=== PATIENT | male | born 1990 | race Caucasian/White ===

== ENCOUNTER 2017-06-03 12:17 | Inpatient (IN) | payer OTHER ==
[2017-06-03] VITALS (7 sets, daily range): BP systolic 108–143; BP diastolic 63–86; PULSE 87–100; RESP 18–20; TEMP 95.6–97.6; O2SAT 100
[~2017-06-03] VITALS: Ht 172.7 cm; Wt 59.5 kg
[~2017-06-03 12:17] MED LIST: LACTATED RINGER'S 1000 ML INJ 1,000 ML IV ONE; ONDANSETRON HCL 4 MG/2 ML VIAL IV PUSH ONE; PHENYLEPH/NS 1000 MCG/10 ML SYR IV ONE; PROPOFOL 200 MG/20 ML AMP IV ONE
[2017-06-03] MEDS ORDERED: ceFAZolin 2 GM PREMIX 50 ML ONE (12:21)
[2017-06-03] MEDS ORDERED: MORPHINE SULFATE 8 MG/ML INJ ONE ×2 (12:24→15:44)
[2017-06-03] MEDS ORDERED: ONDANSETRON HCL 4 MG/2 ML VIAL ONE (12:24)
[2017-06-03 12:45] LABS: AUTOMATED NEUTROPHIL # 2.4 TH/MM3 (1.8-7.7); BASOPHIL # 0.1 TH/MM3 (0-0.2); EOSINOPHIL # 0.2 TH/MM3 (0-0.4); EOSINOPHIL % 2.7 % (0.0-4.0); HEMO FLAGS DIFF FINAL; I-STAT POTASSIUM 3.9 MMOL/L (3.5-4.9); LYMPH % 49.7 % (9.0-44.0); LYMPHOCYTE # 2.9 TH/MM3 (1.0-4.8); MEAN CELL VOLUME 84.2 FL (80.0-100.0); MEAN CORPUSCULAR HEMOGLOBIN 29.6 PG (27.0-34.0); MEAN CORPUSCULAR HGB CONC 35.2 % (32.0-36.0); MONO % 5.1 % (0.0-8.0); NEUT % 41.5 % (16.0-70.0); PLATELET COUNT 279 TH/MM3 (150-450); RED BLOOD COUNT 5.11 MIL/MM3 (4.50-5.90); RED CELL DISTRIBUTION WIDTH 12.6 % (11.6-17.2); WHITE BLOOD COUNT 5.8 TH/MM3 (4.0-11.0)
[2017-06-03] MEDS ORDERED: ACETAMINOPHEN 325 MG TAB PO PRN (12:45)
[2017-06-03] MEDS ORDERED: ENALAPRILAT 1.25 MG/ML VIAL IV PRN (12:45)
[2017-06-03] MEDS ORDERED: MORPHINE SULFATE 30 MG/30 ML PCA IV SCH (12:45)
[2017-06-03] MEDS ORDERED: ONDANSETRON HCL 4 MG/2 ML VIAL IV PRN (12:45)
[2017-06-03] MEDS ORDERED: SODIUM CHLORIDE 0.9% FLUSH 10 ML FLUSH IV FLUSH PRN ×2 (12:45→16:30)
[2017-06-03] MEDS ORDERED: NALOXONE HCL 0.4 MG/ML AMP IV PRN (12:45)
[2017-06-03] MEDS ORDERED: MISCELLANEOUS NURSING INFORMATION XX SCH (12:45)
[2017-06-03] MEDS ORDERED: CHLORHEXIDINE GLUCONATE 2 % 1 PACK (2 CLOTHS) TOP PRN (12:45)
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
[2017-06-03] MEDS ORDERED: IOHEXOL 350 MG/ML 10 ML VIAL (for RAD DIAG) IV ONE (12:51)
[2017-06-03 12:53] LABS: APTT (PATIENT) 24.3 SEC (24.3-30.1); PROTHROMBIN TIME - PATIENT 11.1 SEC (9.8-11.6)
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
[2017-06-03] MEDS ORDERED: PANTOPRAZOLE SODIUM 40 MG VIAL IVP SCH (13:00)
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
[2017-06-03] MEDS ORDERED: ORPH100T99 PO (13:16)
[2017-06-03] MEDS: SODIUM CHLOR 0.9% 1000 ML INJ 1,000 ML IV SCH ×2 (13:28→19:20)
[2017-06-03] MEDS: BACITRACIN TOP OINT 15 GM TUBE TOP SCH ×2 (13:28→23:11)
[2017-06-03] MEDS ORDERED: HYDROmorphone HCL PF 1 MG/ML VIAL IVS ONE (14:30)
[2017-06-03] MEDS ORDERED: ONDANSETRON HCL 4 MG/2 ML VIAL IVP ONE (14:30)
[2017-06-03] MEDS ORDERED: GENTAMICIN SULFATE 80 MG/2 ML VIAL ONE (15:29)
[2017-06-03] MEDS ORDERED: VANCOMYCIN HCL 1000 MG VIAL ONE (16:14)
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
[2017-06-03] MEDS ORDERED: PERC5TAB12 PO (16:29)
[2017-06-03] MEDS ORDERED: BISACODYL 10 MG SUPP RECTAL PRN (16:30)
[2017-06-03] MEDS ORDERED: oxyCODONE/ACETAMINOPHEN 5 MG/325 MG TAB PO PRN (16:30)
[2017-06-03] MEDS ORDERED: PROMETHAZINE HCL 25 MG TAB PO PRN (16:30)
[2017-06-03] MEDS ORDERED: MORPHINE SULFATE 8 MG/ML INJ IV PUSH PRN (16:30)
[2017-06-03] MEDS ORDERED: LACTULOSE SYRUP 20 GM/30 ML CUP PO PRN (16:30)
[2017-06-03] MEDS ORDERED: Post-op Orders (for Pharmacy) MISC XX ONE (16:30)
[2017-06-03] MEDS ORDERED: SENNOSIDES 8.6 MG TAB PO PRN (16:30)
[2017-06-03] MEDS ORDERED: ZOLPIDEM TARTRATE 5 MG TAB PO PRN (16:30)
[2017-06-03] MEDS ORDERED: MAGNESIUM HYDROXIDE SUSP 30 ML CUP PO PRN (16:30)
--- NOTE | 2017-06-03 16:47 | EKG ---
Date Performed: 06/03/2017 Time Performed: 16:14:31 PTAGE: 89 years EKG: Sinus rhythm NORMAL ECG INTERPRETATION BASED ON A DEFAULT AGE OF 41 YEARS NO PREVIOUS TRACING DOCTOR: Fran Valencia Interpretating Date/Time 06/03/2017 16:45:24
[2017-06-03] MEDS ORDERED: MORPHINE SULFATE 4 MG/ML INJ IV PUSH PRN (17:00)
--- NOTE | 2017-06-03 18:15 | PD.OP ---
cc: Dann Casiano Jr., MD Operative Report Date of Surgery: Jun 03, 2017 Preoperative Diagnosis: Left grade 2 open tibia fracture Postoperative Diagnosis: Same Procedure: #1 irrigation debridement #2 intramedullary leidy fixation left tibia Surgeon: Dann Casiano Fire Range Technician(s): Staff Resident Surgeon: None Operation and Findings: The patient received intravenous Ancef and Vanc. After the appropriate anesthesia was administered, the patient was prepped and draped in the supine position in the usual sterile fashion. Skin assessment showed fairly clean open fracture wound. The distal medial tibia shaft wound was extended sharply with knife. The wound was fairly clean. Nonetheless it was thoroughly irrigated and debrided to the extent of periosteal stripping and soft tissue degloving. We made incision proximal to the patella. We carefully dissected down to the quadriceps tendon. An in-line longitudinal split to the quadriceps tendon was completed. The capsule of the knee was entered. We placed the smooth trocar within the knee joint down to the proximal tibia, protecting the patella and trochlea during the case. We then reduced the tibia fracture manually under fluoroscopic imaging. A ball- tipped guidewire was placed into the tibial shaft, passing the fracture site. This was placed down to the distal physeal line of the tibia. We then sequentially reamed the tibia to 1 mm larger than the implanted tibial nail. We obtained good cortical chatter. We measured the appropriate length for the tibial nail. We then passed the tibial nail into the medullary canal of the tibia. The nail was secured proximally with 2 screw(s), using the associated jig as a guide. We used the perfect [place] technique to visualize the distal tibial screws. The nail was secured distally with 3 screw(s). We had good reduction of the fracture with acceptable alignment in the AP and lateral planes and to rotation. We thoroughly irrigated the incisions including a lavage of the arthrotomy site proximally. The quadriceps split was closed with a #1 Vicryl. The remaining incisions were closed with #2-0 Vicryl, followed by jessica. Sterile dressing was applied. IMPLANTS USED Synthes tibal nail, size: 9 POSTP-OP PLAN OF ACTIVITY Antibiotics: Ancef, vancomycin -48hrs Antiocoagulation: Lovenox Weight bearing status: 50% Dressing: Change daily, by RN starting postop day 2 Dispo: expected discharge 2 days after 48hrs iv abx Dann Casiano Jr., MD Jun 03, 2017 18:15
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
[2017-06-03] MEDS ORDERED: fentaNYL CITRATE 250 MCG/5 ML AMP ONE (19:01)
[2017-06-03] MEDS ORDERED: DO NOT ADM ANY ANTICOAGULANT DRUGS PRN (19:30)
[2017-06-03] MEDS: KETOROLAC TROMETHAMINE 30 MG/ML (IVP) VIAL IVP SCH (19:50)
[2017-06-03] MEDS: diphenhydrAMINE HCL 25 MG CAP PO PRN (20:50)
[2017-06-03] MEDS: SODIUM CHLORIDE 0.9% FLUSH 10 ML FLUSH IV FLUSH SCH (21:00)
[2017-06-03] MEDS: DOCUSATE SODIUM 50 MG/SENNA 8.6 MG TAB PO SCH (21:00)
[2017-06-03] MEDS: oxyCODONE/ACETAMINOPHEN 5 MG/325 MG TAB PO PRN (21:12)
[2017-06-03] MEDS: PCA - TOTAL MG MORPHINE DELIVERED PER SHIFT SCH (22:00)
[2017-06-04] VITALS (7 sets, daily range): BP systolic 101–110; BP diastolic 53–66; PULSE 94–110; RESP 16–18; TEMP 96.9–98.3; O2SAT 95–99
[2017-06-04] MEDS: oxyCODONE/ACETAMINOPHEN 5 MG/325 MG TAB PO PRN ×4 (01:23→21:53)
[2017-06-04] MEDS: KETOROLAC TROMETHAMINE 30 MG/ML (IVP) VIAL IVP SCH ×4 (01:24→20:23)
[2017-06-04] MEDS: SODIUM CHLOR 0.9% 1000 ML INJ 1,000 ML IV SCH (03:01)
[2017-06-04] MEDS ORDERED: CHLORHEXIDINE GLUCONATE 2 % 1 PACK (2 CLOTHS) TOP SCH (04:00)
[2017-06-04] MEDS: diphenhydrAMINE HCL 25 MG CAP PO PRN ×2 (04:22→07:51)
[2017-06-04] MEDS: VANCOMYCIN INJ 1,000 MG in SODIUM CHLOR 0.9% 250 ML INJ 250 ML IV SCH ×2 (04:25→17:37)
[2017-06-04] MEDS: PCA - TOTAL MG MORPHINE DELIVERED PER SHIFT SCH ×3 (06:00→22:00)
[2017-06-04 06:29] LABS: BASOPHIL % 0.3 % (0.0-2.0); EOSINOPHIL % 0.6 % (0.0-4.0); HEMATOCRIT 29.7 % (39.0-51.0); HEMO FLAGS DIFF FINAL; LYMPH % 22.9 % (9.0-44.0); LYMPHOCYTE # 1.7 TH/MM3 (1.0-4.8); MEAN CELL VOLUME 85.9 FL (80.0-100.0); MEAN CORPUSCULAR HEMOGLOBIN 29.5 PG (27.0-34.0); MEAN CORPUSCULAR HGB CONC 34.4 % (32.0-36.0); MONO % 7.5 % (0.0-8.0); NEUT % 68.7 % (16.0-70.0); PLATELET COUNT 200 TH/MM3 (150-450); RED BLOOD COUNT 3.46 MIL/MM3 (4.50-5.90); RED CELL DISTRIBUTION WIDTH 12.7 % (11.6-17.2); WHITE BLOOD COUNT 7.3 TH/MM3 (4.0-11.0)
[2017-06-04 06:59] LABS: BICARBONATE 27.5 MEQ/L (21.0-32.0); POTASSIUM 3.6 MEQ/L (3.5-5.1)
[2017-06-04] MEDS: ENOXAPARIN SODIUM 30 MG/0.3 ML SYRINGE SQ SCH ×2 (07:06→18:27)
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
[2017-06-04] MEDS: DOCUSATE SODIUM 50 MG/SENNA 8.6 MG TAB PO SCH ×2 (07:50→20:23)
[2017-06-04] MEDS: BACITRACIN TOP OINT 15 GM TUBE TOP SCH ×2 (07:51→20:33)
[2017-06-04] MEDS: FAMOTIDINE 20 MG TAB PO SCH ×2 (07:51→20:23)
[2017-06-04] MEDS: SODIUM CHLORIDE 0.9% FLUSH 10 ML FLUSH IV FLUSH SCH ×2 (07:51→20:32)
--- NOTE | 2017-06-04 13:14 | HHI.PR ---
Subjective Subjective Notes S/P I&D and IM leidy fixation LEFT tibia Complains of itching with pain meds Objective Vitals/I&O Vital Signs Date Time Temp Pulse Resp B/P Pulse Ox O2 Delivery O2 Flow Rate FiO2 06/04/17 10:56 98 21 06/04/17 08:00 96.9 94 18 110/61 06/03/17 19:50 Nasal Cannula 2 Labs Laboratory Tests Test 06/04/17 06:04 White Blood Count 7.3 Red Blood Count 3.46 Hemoglobin 10.2 Hematocrit 29.7 Mean Corpuscular Volume 85.9 Mean Corpuscular Hemoglobin 29.5 Mean Corpuscular Hemoglobin 34.4 Concent Red Cell Distribution Width 12.7 Platelet Count 200 Mean Platelet Volume 7.1 Neutrophils (%) (Auto) 68.7 Lymphocytes (%) (Auto) 22.9 Monocytes (%) (Auto) 7.5 Eosinophils (%) (Auto) 0.6 Basophils (%) (Auto) 0.3 Neutrophils # (Auto) 5.0 Lymphocytes # (Auto) 1.7 Monocytes # (Auto) 0.5 Eosinophils # (Auto) 0.0 Basophils # (Auto) 0.0 CBC Comment DIFF FINAL Differential Comment Sodium Level 139 Potassium Level 3.6 Chloride Level 106 Carbon Dioxide Level 27.5 Anion Gap 6 Blood Urea Nitrogen 9 Creatinine 0.91 Estimat Glomerular Filtration 72 Rate Random Glucose 107 Calcium Level 8.1 Radiology Last Impressions Pelvis X-Ray 06/03/176 Signed Impressions: Service Date/Time: May 12:11 - CONCLUSION: No acute osseous injury. Lev Melton MD Head CT 06/03/171225 Signed Impressions: Service Date/Time: May 12:30 - CONCLUSION: Negative exam. No acute trauma. Lev Melton MD Chest X-Ray 06/03/171225 Signed Impressions: Service Date/Time: May 12:11 - CONCLUSION: 1. Old left clavicular fracture. 2. Nothing acute. Lev Melton MD Chest CT 06/03/176 Signed Impressions: Service Date/Time: May 12:36 - CONCLUSION: 1. Old left clavicular fracture with ORIF. 2. Otherwise negative. Lev Melton MD Cervical Spine CT 06/03/17 1226 Signed Impressions: Service Date/Time: , June 03, 2017 12:32 - CONCLUSION: Negative exam. No acute osseous injury. Lev Melton MD Abdomen/Pelvis CT 06/03/17 1226 Signed Impressions: Service Date/Time: , June 03, 2017 12:36 - CONCLUSION: Negative exam. No acute intraperitoneal or pelvic visceral trauma/fracture. Lev Melton MD Tibia/Fibula X-Ray 06/03/17 0000 Signed Impressions: Service Date/Time: , June 03, 2017 18:02 - CONCLUSION: Limited images as detailed above. Valentino Hurley Jr., MD Shoulder X-Ray 06/03/17 0000 Signed Impressions: Service Date/Time: , June 03, 2017 12:11 - CONCLUSION: 1. Sideplate and osseous screws on a previous left clavicular fracture. 2. No acute injury. Lev Melton MD Narrative Exam GENERAL: 27-year-old well-nourished, well developed male lying in bed. SKIN: Warm and dry. HEAD: Atraumatic. Normocephalic. NECK: Trachea midline. No JVD. CARDIOVASCULAR: Regular rate and rhythm. RESPIRATORY: No accessory muscle use. Lungs clear to auscultation. Breath sounds equal bilaterally. GASTROINTESTINAL: Abdomen soft, non-tender, nondistended. + BS. MUSCULOSKELETAL: Extremities without cyanosis, or edema. LLE with claudine wrap in place. + peripheral pulses, MAEW. NEUROLOGICAL: Awake and alert. Normal speech. A/P Assessment and Plan INJURIES: LEFT open tib/fib fx 06/03: I&D and IM leidy fixation LEFT tibia Diet: Regular Pulmonary: IS Pain: Morphine PEACH GROWER, Toradol IV, Percocet, Morphine IV PRN. Activity: OOB. PT ordered (50% WB LLE) GI: Pepcid Bowel: Nimco-colace, PRN Lactulose and MOM. No BM yet DVT: SCDs, Lovenox 30 BID LEFT open tib/fib fx Orthopedics consulted 06/03: I&D and IM leidy fixation LEFT tibia Pain control ABX: Ancef and Vanco 50% WB LLE OOB- PT ordered Plan of care discussed with patient and girlfriend at bedside. Case management consulted to assist with discharge planning. Plan to DC home tomorrow once antibiotics completed. Riya Santos Jun 04, 2017 13:14
[2017-06-04] MEDS ORDERED: WALKER WHEELS/F1 MIS (13:16)
[2017-06-04] MEDS ORDERED: CRUTMIS25 (13:16)
[2017-06-04] MEDS: diphenhydrAMINE HCL 50 MG/ML VIAL IV PUSH PRN (18:44)
[2017-06-04] MEDS: MULTIVITAMINS/MINERALS THERAPEUTIC TAB PO SCH (20:22)
[2017-06-04] MEDS: ORPHENADRINE CITRATE 100 MG SUSTAINED RELEASE TAB PO SCH (20:23)
[2017-06-05 00:10] VITALS: BP 113/64; PULSE 98; RESP 16; TEMP 98.1; O2SAT 95
[2017-06-05] MEDS: diphenhydrAMINE HCL 50 MG/ML VIAL IV PUSH PRN ×3 (00:45→10:52)
[2017-06-05] MEDS: KETOROLAC TROMETHAMINE 30 MG/ML (IVP) VIAL IVP SCH ×3 (00:45→14:30)
[2017-06-05] MEDS: PCA - TOTAL MG MORPHINE DELIVERED PER SHIFT SCH (04:08)
[2017-06-05] MEDS: ENOXAPARIN SODIUM 30 MG/0.3 ML SYRINGE SQ SCH ×2 (06:32→18:04)
[2017-06-05] MEDS: oxyCODONE/ACETAMINOPHEN 5 MG/325 MG TAB PO PRN ×4 (06:33→20:42)
[2017-06-05 08:00] VITALS: BP 119/67; PULSE 94; RESP 14; TEMP 98.5; O2SAT 94
[2017-06-05] MEDS: DOCUSATE SODIUM 50 MG/SENNA 8.6 MG TAB PO SCH ×2 (10:20→20:37)
[2017-06-05] MEDS: ORPHENADRINE CITRATE 100 MG SUSTAINED RELEASE TAB PO SCH ×2 (10:20→20:37)
[2017-06-05] MEDS: MULTIVITAMINS/MINERALS THERAPEUTIC TAB PO SCH ×2 (10:20→20:37)
[2017-06-05] MEDS: FAMOTIDINE 20 MG TAB PO SCH ×2 (10:20→20:37)
[2017-06-05] MEDS: SODIUM CHLORIDE 0.9% FLUSH 10 ML FLUSH IV FLUSH SCH ×2 (10:21→20:38)
--- NOTE | 2017-06-05 10:29 | PD.ORT.PN ---
Subjective Subjective Remarks POD 2- IMN left tibia grade 2 open doing well. pruritis with pain meds. not able to put much weight on leg. Objective Vitals Vital Signs Date Time Temp Pulse Resp B/P Pulse Ox O2 Delivery O2 Flow Rate FiO2 06/05/17 08:00 98.5 94 14 119/67 94 06/05/17 00:10 98.1 98 16 113/64 95 06/04/17 21:16 99 21 06/04/17 20:10 97.5 109 16 109/63 96 06/04/17 16:00 98.3 110 18 101/66 97 06/04/17 12:00 97.7 98 18 105/64 99 06/04/17 10:56 98 21 I/O 06/04/17 06/04/17 06/04/17 06/05/17 06/05/17 06/05/17 07:00 15:00 23:00 07:00 15:00 23:00 Intake Total 913 ml 960 ml 1778 ml 340 ml Balance 913 ml 960 ml 1778 ml 340 ml Intake Oral 240 ml 960 ml 480 ml 240 ml IV Total 673 ml 1298 ml 100 ml # Voids 1 3 2 2 # Bowel Movements 0 0 0 0 Result Diagram: 06/04/17 0604 06/04/17 0604 Objective Remarks LLE: nvi. wound with mild-mod ss drainage distal wound. dressing with dry drainage. soft compartment. neg homans Assessment & Plan Assessment and Plan POD 2- IMN left tibia grade 2 open doing well -benadryl lovenox dc abx today 50% wb dressing change qday stable per ortho. clear f/u 2 wks Dann Casiano Jr., MD Jun 05, 2017 10:29
--- NOTE | 2017-06-05 10:30 | PD.ORT.PN ---
Subjective Subjective Remarks POD 1- IMN left tibia grade 2 open no CP/SOB. pain controlled. Objective Vitals Vital Signs Date Time Temp Pulse Resp B/P Pulse Ox O2 Delivery O2 Flow Rate FiO2 06/05/17 08:00 98.5 94 14 119/67 94 06/05/17 00:10 98.1 98 16 113/64 95 06/04/17 21:16 99 21 06/04/17 20:10 97.5 109 16 109/63 96 06/04/17 16:00 98.3 110 18 101/66 97 06/04/17 12:00 97.7 98 18 105/64 99 06/04/17 10:56 98 21 I/O 06/04/17 06/04/17 06/04/17 06/05/17 06/05/17 06/05/17 07:00 15:00 23:00 07:00 15:00 23:00 Intake Total 913 ml 960 ml 1778 ml 340 ml Balance 913 ml 960 ml 1778 ml 340 ml Intake Oral 240 ml 960 ml 480 ml 240 ml IV Total 673 ml 1298 ml 100 ml # Voids 1 3 2 2 # Bowel Movements 0 0 0 0 Result Diagram: 06/04/17 0604 06/04/17 0604 Objective Remarks LLE: nvi. wound with mild-mod ss drainage distal wound. dressing with dry drainage. soft compartment. neg homans Assessment & Plan Assessment and Plan POD 1- IMN left tibia grade 2 open doing well lovenox dc abx tomorrow 50% wb dressing change qday POD 2 will follow DATE OF VISIT 06/04/17 Dann Casiano Jr., MD Jun 05, 2017 10:30
[2017-06-05] MEDS: BACITRACIN TOP OINT 15 GM TUBE TOP SCH ×2 (10:31→20:43)
[2017-06-05 12:00] VITALS: BP 121/76; PULSE 84; RESP 15; TEMP 97.5; O2SAT 96
[2017-06-05] MEDS ORDERED: WHEEMIS3 (12:07)
--- NOTE | 2017-06-05 12:09 | HHI.FF ---
Face to Face Verification Diagnosis: (1) Type III open fracture of distal end of left fibula and tibia Physical Therapy Order: Evaluate and Treat, Improve ambulation, Strength and gait training Home Health Nursing Order: Nursing assessment with vital signs I have seen patient Baldemar Moreira on 06/05/17. My clinical findings support the need for the requested home health care services because: Limited ability to care for self High risk of falls I certify that my clinical findings support that this patient is homebound because: Post-op weakness Unsteady gait/balance Riya Santos Jun 05, 2017 12:09
[2017-06-05] MEDS ORDERED: LACTULOSE SYRUP 20 GM/30 ML CUP PO ONE (12:15)
--- NOTE | 2017-06-05 13:56 | HHI.PR ---
Subjective Subjective Notes Complains of itching with pain meds Not cooperative with PT this AM Objective Vitals/I&O Vital Signs Date Time Temp Pulse Resp B/P Pulse Ox O2 Delivery O2 Flow Rate FiO2 06/05/17 12:00 97.5 84 15 121/76 96 06/04/17 21:16 21 06/03/17 19:50 Nasal Cannula 2 Labs Last Impressions Pelvis X-Ray 06/03/17 1226 Signed Impressions: Service Date/Time: May 12:11 - CONCLUSION: No acute osseous injury. Lev Melton MD Head CT 06/03/17 1226 Signed Impressions: Service Date/Time: May 12:30 - CONCLUSION: Negative exam. No acute trauma. Lev Melton MD Chest X-Ray 06/03/17 1226 Signed Impressions: Service Date/Time: May 12:11 - CONCLUSION: 1. Old left clavicular fracture. 2. Nothing acute. Lev Melton MD Chest CT 06/03/17 1226 Signed Impressions: Service Date/Time: May 12:36 - CONCLUSION: 1. Old left clavicular fracture with ORIF. 2. Otherwise negative. Lev Melton MD Cervical Spine CT 06/03/17 1226 Signed Impressions: Service Date/Time: May 12:32 - CONCLUSION: Negative exam. No acute osseous injury. Lev Melton MD Abdomen/Pelvis CT 06/03/17 1226 Signed Impressions: Service Date/Time: May 12:36 - CONCLUSION: Negative exam. No acute intraperitoneal or pelvic visceral trauma/fracture. Lev Melton MD Tibia/Fibula X-Ray 06/03/17 0000 Signed Impressions: Service Date/Time: May 18:02 - CONCLUSION: Limited images as detailed above. Valentino Hurley Jr., MD Shoulder X-Ray 06/03/17 0000 Signed Impressions: Service Date/Time: , June 03, 2017 12:11 - CONCLUSION: 1. Sideplate and osseous screws on a previous left clavicular fracture. 2. No acute injury. Lev Melton MD Radiology Last Impressions Pelvis X-Ray 06/03/17 1226 Signed Impressions: Service Date/Time: May 12:11 - CONCLUSION: No acute osseous injury. Lev Melton MD Head CT 06/03/17 1226 Signed Impressions: Service Date/Time: May 12:30 - CONCLUSION: Negative exam. No acute trauma. Lev Melton MD Chest X-Ray 06/03/17 1226 Signed Impressions: Service Date/Time: May 12:11 - CONCLUSION: 1. Old left clavicular fracture. 2. Nothing acute. Lev Melton MD Chest CT 06/03/17 1226 Signed Impressions: Service Date/Time: May 12:36 - CONCLUSION: 1. Old left clavicular fracture with ORIF. 2. Otherwise negative. Lev Melton MD Cervical Spine CT 06/03/17 1226 Signed Impressions: Service Date/Time: May 12:32 - CONCLUSION: Negative exam. No acute osseous injury. Lev Melton MD Abdomen/Pelvis CT 06/03/17 1226 Signed Impressions: Service Date/Time: May 12:36 - CONCLUSION: Negative exam. No acute intraperitoneal or pelvic visceral trauma/fracture. Lev Melton MD Tibia/Fibula X-Ray 06/03/17 0000 Signed Impressions: Service Date/Time: May 18:02 - CONCLUSION: Limited images as detailed above. Valentino Hurley Jr., MD Shoulder X-Ray 06/03/17 0000 Signed Impressions: Service Date/Time: May 12:11 - CONCLUSION: 1. Sideplate and osseous screws on a previous left clavicular fracture. 2. No acute injury. Lev Melton MD Narrative Exam GENERAL: 27-year-old well-nourished, well developed male lying in bed. SKIN: Warm and dry. HEAD: Atraumatic. Normocephalic. NECK: Trachea midline. No JVD. CARDIOVASCULAR: Regular rate and rhythm. RESPIRATORY: No accessory muscle use. Lungs clear to auscultation. Breath sounds equal bilaterally. GASTROINTESTINAL: Abdomen soft, non-tender, nondistended. + BS. MUSCULOSKELETAL: Extremities without cyanosis, +1 LLE edema. LLE with [place] dressings C/D/I. + peripheral pulses, MAEW. NEUROLOGICAL: Awake and alert. Normal speech. A/P Assessment and Plan INJURIES: LEFT open tib/fib fx 06/03: I&D and IM leidy fixation LEFT tibia Diet: Regular Pulmonary: IS Pain: Toradol IV, Percocet, Morphine IV PRN. Activity: OOB. PT ordered (50% WB LLE) GI: Pepcid Bowel: Nimco-colace, PRN Lactulose and MOM. No BM yet. Lactulose x1 today DVT: SCDs, Lovenox 30 BID LEFT open tib/fib fx Orthopedics consulted 06/03: I&D and IM leidy fixation LEFT tibia Pain control ABX: Ancef and Vanco 50% WB LLE OOB- PT ordered Plan of care discussed with patient and girlfriend at bedside. Case management consulted to assist with discharge planning. CM to assist with DME delivery today so patient can DC tomorrow AM. ABX complete tonight at 1999. Plan to DC home tomorrow AM. Wheelchair and walker ordered. Attending Statement The exam, history, and the medical decision-making described in the above note were completed with the assistance of the mid-level provider. I reviewed and agree with the findings presented. I attest that I had a [id number] encounter with the patient on the same day, and personally performed and documented my assessment and findings in the medical record. extremity Exam: soft, neurovascular intact pain controlled DC home when cleared by ortho and PT Riya Santos Jun 05, 2017 13:56 Osbaldo Carcamo MD Jun 05, 2017 19:15
[2017-06-05] MEDS: diphenhydrAMINE HCL 25 MG CAP PO PRN ×2 (15:33→22:09)
[2017-06-05 16:00] VITALS: BP 121/75; PULSE 88; RESP 17; TEMP 98; O2SAT 94
[2017-06-05 19:10] VITALS: BP 138/68; PULSE 79; RESP 18; TEMP 97.9; O2SAT 99
[2017-06-05 23:39] VITALS: BP 117/55; PULSE 95; RESP 18; TEMP 98.3; O2SAT 98
[2017-06-06] MEDS: diphenhydrAMINE HCL 25 MG CAP PO PRN ×5 (03:52→21:35)
[2017-06-06] MEDS: oxyCODONE/ACETAMINOPHEN 5 MG/325 MG TAB PO PRN ×2 (03:53→08:28)
[2017-06-06 04:01] VITALS: BP 111/59; PULSE 89; RESP 18; TEMP 97.9; O2SAT 95
[2017-06-06] MEDS: ENOXAPARIN SODIUM 30 MG/0.3 ML SYRINGE SQ SCH ×2 (06:04→20:02)
[2017-06-06 08:00] VITALS: BP 117/71; PULSE 94; RESP 18; TEMP 97.5; O2SAT 91
[2017-06-06] MEDS: DOCUSATE SODIUM 50 MG/SENNA 8.6 MG TAB PO SCH ×2 (08:28→20:02)
[2017-06-06] MEDS: MULTIVITAMINS/MINERALS THERAPEUTIC TAB PO SCH ×2 (08:28→20:02)
[2017-06-06] MEDS: FAMOTIDINE 20 MG TAB PO SCH ×2 (08:28→20:02)
[2017-06-06] MEDS: ORPHENADRINE CITRATE 100 MG SUSTAINED RELEASE TAB PO SCH ×2 (08:28→20:02)
[2017-06-06] MEDS: SODIUM CHLORIDE 0.9% FLUSH 10 ML FLUSH IV FLUSH SCH ×2 (08:29→20:02)
[2017-06-06] MEDS: BACITRACIN TOP OINT 15 GM TUBE TOP SCH ×2 (08:30→20:02)
--- NOTE | 2017-06-06 11:54 | PD.ORT.PN ---
Subjective Subjective Remarks POD 2 s/p IMN left open tibia having difficulty with pain medications causing itching. patient reports that is constantly itching and that the benadryl only works for approx 1 hour. Objective Vitals Vital Signs Date Time Temp Pulse Resp B/P Pulse Ox O2 Delivery O2 Flow Rate FiO2 06/06/17 09:28 18 06/06/17 08:00 97.5 94 18 117/71 91 06/06/17 04:01 97.9 89 18 111/59 95 06/05/17 23:39 98.3 95 18 117/55 98 06/05/17 19:10 97.9 79 18 138/68 99 06/05/17 16:00 98.0 88 17 121/75 94 06/05/17 12:00 97.5 84 15 121/76 96 I/O 06/05/17 06/05/17 06/05/17 06/06/17 06/06/17 06/06/17 06:59 14:59 22:59 06:59 14:59 22:59 Intake Total 340 ml 200 ml 1080 ml 240 ml Output Total 750 ml Balance 340 ml 200 ml 330 ml 240 ml Intake Oral 240 ml 1080 ml 240 ml IV Total 100 ml 200 ml Output Urine Total 750 ml # Voids 2 5 1 # Bowel Movements 0 0 0 Result Diagram: 06/04/17 0604 06/04/17 0604 Objective Remarks LLE: dressings clean and dry. intact. NVI. 2+ swelling of foot. stiffness to dorsiflexion. neg mir. Assessment & Plan Assessment and Plan POD 2- IMN left tibia grade 2 open s/p IMN 50%WB daily dressing changes work aggressively on stretching of ankle to prevent contracture will change pain meds from percocet to hydrocodone and see if helps with itching continue taking benadryl if pain/itching improved with hydrocodone, then cleared for DC home f/u with Dr Casiano in 2 weeks DVT prophylaxis: PAOLA monson with Xarelto DATE OF VISIT 06/06/17 Good Serrato Jun 06, 2017 11:54
[2017-06-06] MEDS ORDERED: XARE10TA PO (11:59)
[2017-06-06] MEDS ORDERED: HYDR-3583 PO (11:59)
[2017-06-06 12:00] VITALS: BP 127/79; PULSE 97; RESP 18; TEMP 98.3; O2SAT 94
[2017-06-06] MEDS ORDERED: ACETAMINOPHEN/HYDROcodone 325 MG/7.5 MG TAB PO PRN (12:00)
[2017-06-06] MEDS: ACETAMINOPHEN/HYDROcodone 325 MG/10 MG TAB PO PRN ×3 (12:58→21:36)
[2017-06-06 16:00] VITALS: BP 122/75; PULSE 84; RESP 18; TEMP 98.3; O2SAT 97
[2017-06-06 20:00] VITALS: BP 132/79; PULSE 90; RESP 19; TEMP 99.1; O2SAT 98
[2017-06-06 23:27] VITALS: BP 120/66; PULSE 66; RESP 20; TEMP 99.3; O2SAT 93
[2017-06-07] MEDS: ENOXAPARIN SODIUM 30 MG/0.3 ML SYRINGE SQ SCH (06:16)
[2017-06-07] MEDS: diphenhydrAMINE HCL 25 MG CAP PO PRN ×2 (06:16→10:01)
[2017-06-07] MEDS: ACETAMINOPHEN/HYDROcodone 325 MG/10 MG TAB PO PRN ×2 (06:16→09:59)
[2017-06-07 07:51] VITALS: BP 129/74; PULSE 84; RESP 18; TEMP 96.7; O2SAT 96
[2017-06-07] MEDS: SODIUM CHLORIDE 0.9% FLUSH 10 ML FLUSH IV FLUSH SCH (09:00)
[2017-06-07] MEDS: DOCUSATE SODIUM 50 MG/SENNA 8.6 MG TAB PO SCH (09:58)
[2017-06-07] MEDS: FAMOTIDINE 20 MG TAB PO SCH (09:58)
[2017-06-07] MEDS: ORPHENADRINE CITRATE 100 MG SUSTAINED RELEASE TAB PO SCH (09:58)
[2017-06-07] MEDS: MULTIVITAMINS/MINERALS THERAPEUTIC TAB PO SCH (09:58)
[2017-06-07] MEDS: BACITRACIN TOP OINT 15 GM TUBE TOP SCH (10:02)
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
== END 2017-06-07 12:14 | disposition home health service (06) | DRG 492 ==
LOC: NEPI 12:17 → NEDA 13:18 → EDBD 13:18 → N06A 20:06
PROVIDERS: ADMIT Surgery; ATTEND Surgery
PROC: 0QSH06Z Reposition Left Tibia with Intramedullary Internal Fixation Device, Open Approach (ICD-10-PCS; principal; 2017-06-03 16:17)
DX: S82.392B Other fracture of lower end of left tibia, initial encounter for open fracture type I or II (principal); S82.832B Other fracture of upper and lower end of left fibula, initial encounter for open fracture type I or II; S06.0X1A Concussion with loss of consciousness of 30 minutes or less, initial encounter; I45.6 Pre-excitation syndrome; L29.9 Pruritus, unspecified; R40.2411 Glasgow coma scale score 13-15, in the field [EMT or ambulance]; S70.212A Abrasion, left hip, initial encounter; T40.2X5A Adverse effect of other opioids, initial encounter; V23.4XXA Motorcycle driver injured in collision with car, pick-up truck or van in traffic accident, initial encounter; Y92.410 Unspecified street and highway as the place of occurrence of the external cause; Z88.5 Allergy status to narcotic agent
CPT/HCPCS: 70450; 71010; 71260; 72125; 72170; 73020; 73590; 74177; 76000; 80048; 82435; 82565; 82947; 84132; 84295; 84520; 85025; 85610; 85730; 86850; 86900; 86901; 93005; 94150; C1713; C9113; J0690; J1170; J1200; J1580; J1650; J1885; J2270; J2370; J2405; J3010; J3370; J7030; J7050; J7120; Q0169; Q9967